=== PATIENT | male | born 1990 | race Caucasian/White ===

== ENCOUNTER 2016-11-02 01:48 | Emergency (ER) | payer OTHER, BC ==
[~2016-11-02] VITALS: Ht 170.2 cm; Wt 58.2 kg
[~2016-11-02 01:48] MED LIST: NO ROUTINE MEDS
--- OUTSIDE RECORDS SUMMARY | 2016-11-02 01:53 | XMS REPORT | Continuity of Care Document ---
Author Author [facility] Organization [facility] Address Unknown Phone Unavailable Allergies Active Description Code Type Severity Reaction Onset Reported/Identified Relationship to Patient Clinical Status Yes amoxicillin NKMA N/A N/A 10/15/2013 Yes penicillin NKMA N/A Hives 10/15/2013 Medications Problems Procedures Results Encounters ACCT No. Visit Date/Time Discharge Status Pt. Type Provider Facility Loc./Unit Complaint [id number] 07/07/2015 14:24:00 2015 23:59:00 DIS Outpatient German Goode [facility] New Surg lynn bite left hand [id number] 07/07/2015 09:33:00 2015 23:59:00 DIS Outpatient Reyna Gracia [facility] New FM Poss lynn bite [id number] 06/22/2015 13:00:00 Document Registration [id number] 06/22/2015 12:53:00 ACT Outpatient Haroon Booker [facility] New IC PAIN RT SIDE OF STOMACH
--- OUTSIDE RECORDS SUMMARY | 2016-11-02 01:53 | XMS REPORT | Referral Summary ---
Author Author [facility] Organization [facility] Address Unknown Phone Unavailable Care Team Providers Care Risk Management Manager Name Role Phone Minerva Sullivan Primary Care Physician [phone] Encounter VC Date(s): 07/07/15 - 07/07/15 [facility] [address] [place] [address] Discharge Diagnosis: Superficial frostbite of left hand Discharge Disposition: 01-Home or Self Care Attending Physician: Reyna Gracia PA-C Admitting Physician: Reyna Gracia PA-C Vital Signs Most recent to 1 oldest [Reference Range]: Temperature Tympanic 35.6 degC [36.6-38.1 degC] *LOW* (07/07/15 9:45 AM) Peripheral Pulse 88 bpm Rate [60-100 bpm] (07/07/15 9:45 AM) Respiratory Rate 20 br/min [14-20 br/min] (07/07/15 9:45 AM) Blood Pressure 115/82 mmHg [90-140/60-90 mmHg] (07/07/15 9:45 AM) Problem List Condition Effective Dates Status Health Status Informant Head Resolved trauma(Confirmed) Allergies, Adverse Reactions, Alerts Substance Reaction Severity Status amoxicillin Active penicillin Hives Active Medications Aldara 5% topical cream 1 macy, Topical, 3x/Wk, # 24 Each, 0 Refill(s), Pharmacy: [facility] # [id number] Start Date: 09/16/14 Status: Ordered Keflex 500 mg oral capsule 500 mg 1 caps, Oral, q8hr, X 7 days, # 21 caps, 0 Refill(s), Pharmacy: [facility] #[id number], 1 caps Oral q8hr,x7 days Start Date: 07/07/15 Stop Date: 07/14/15 Status: Ordered Results No data available for this section Immunizations Vaccine Date Refusal Reason tetanus/diphth/pertuss (Tdap) adult/adol 11/15/05 influenza virus vaccine, inactivated 04/18/15 Procedures Procedure Date Related Diagnosis Body Site Hospital admission for broken eye socket 3 places Social History Social History Type Response Smoking Status Current every day smoker; Type: Cigarettes Assessment and Plan Extracted from: Title: Ambulatory Patient Education Author: Reyna Gracia PA-C Date : 07/07/15 Family Medicine Frostbite When your skin is exposed to cold for a long period of time, the underlying tissues may freeze and suffer permanent damage. This condition is called frostbite. Commonly affected areas include the feet, hands (especially the fingers), nose, and ears. People with poor circulation, the elderly, people with poorly controlled diabetes, and people with alcoholism are at greater risk for frostbite. Frostbite ranges in severity from mild and reversible to severe with possible permanent tissue and loss. DIAGNOSIS Frostbite is diagnosed when areas of the skin appear wisdom or pale and feel hard. There may be a lack of feeling in the area, or there may be severe pain. As the frostbitten part warms, a red color may return to the area, and there is usually increased pain. TREATMENT When frostbite is present there may also be hypothermia. This is a drop in the temperature of the entire body. It is important to check the temperature and make sure it is normal (98.6F [37C]). It is important to warm frostbitten parts as soon as possible to avoid permanent damage. The following steps can be taken to help: Get out of the cold. Warm hands in your armpits. Cover the nose and ears with gloved hands. Removing the person from a cold environment is the number one priority, if possible. Do not rub affected areas or use them. Do not walk on frostbitten feet unless it is necessary to get to a warm place. If emergency help is not available, the frostbitten parts may be submerged in lukewarm water. The water should not be hot. If pain occurs with warming, this is a good sign. It means circulation is returning. If there is no pain or lack of feeling remains, it is necessary to seek immediate medical help. After you warm the affected area it is very important that this area is not reexposed to cold. Stay out of the cold. Do not smoke. Smoking reduces your circulation. PREVENTION Wear warm clothing in layers, starting with long underwear and adding additional loose-fitting garments. Wear mittens. Mittens lock in air, and the fingers help warm each other. Wear 2 pairs of socks. Wear cotton socks next to the skin and wool socks over the cotton socks. Wear waterproof boots or shoes that are not tight fitting. Wear a pull-down cap or hobson, covering the head, ears, neck, and face if necessary. Avoid alcohol. This increases heat loss and increases chances of frostbite. Avoid smoking. Nicotine causes blood vessels to constrict in your hands and feet. Pack food when you plan to be in the cold. Increasing your caloric intake to a high level increases your internal heat. Carry extra blankets and clothing in the car during cold weather. Be aware of the windchill factor and dress accordingly. Wind is an important factor that can increase the risk of frostbite. Avoid high winds when low temperatures are present. Always avoid situations where it is impossible to get out of the cold if needed. At the first signs of frostbite (numbness, pain, extreme redness), you should immediately get out of the cold. HOME CARE INSTRUCTIONS If bandages (dressings) were applied, change them as directed. Follow up with your caregiver. Keep any appointments with specialists as directed. Failure to follow up could result in infection, loss of tissue, and chronic pain or disability. SEEK IMMEDIATE MEDICAL CARE IF: You have a fever. You develop redness, lose tissue, or there is yellowish-white fluid (pus) coming from the frostbitten area. You develop increasing pain in the frostbitten area. The frostbitten area begins to turn a dark color. You see a red streak going away from the frostbitten area. MAKE SURE YOU: Understand these instructions. Will watch your condition. Will get help right away if you are not doing well or get worse. Document Released: 09/10/2001 Document Revised: 10/19/2014 Document Reviewed: ExitCare Patient Information 2015 [facility], [facility]. This information is not intended to replace advice given to you by your health care provider. Make sure you discuss any questions you have with your health care provider. No follow up information was provided. Extracted from: Title: Office Visit Note- Frostbite Author: Reyna Gracia PA-C Date : 07/07/15 Assessment/Plan Superficial frostbite of left hand This looks like it is very superficial and confined only to skin and SQ tissue. Would like pt to see Dr. Mccurdy to see if there is anything further that can be done. D/w Dr. Sullivan, and he agreed and also wanted to place the pt on abx. Will start Keflex. Pt advised to let us know if he has any issues with the medication (as he has h/o rash with PCN, but no anaphylaxis). Pt advised to keep hands covered and out of cold and avoid injury. Ordered: Office Visit Level 3 Est 92640 Orders: cephalexin, 500 mg 1 caps, Oral, q8hr, X 7 days, # 21 caps, 0 Refill(s ), Pharmacy: [facility] #[id number], 1 caps Oral q8hr,x7 days
--- OUTSIDE RECORDS SUMMARY | 2016-11-02 01:53 | XMS REPORT | Referral Summary ---
Author Author [facility], [facility] Organization [facility] Address Unknown Phone Unavailable Care Team Providers Care Sprinkler Irrigation Equipment Mechanic Name Role Phone Minerva Sullivan Primary Care Physician [phone] Encounter VC Date(s): 06/22/15 - 06/22/15 [facility] [address] [place] [address]- Discharge Diagnosis: History of indigestion Discharge Diagnosis: Tobacco use Discharge Diagnosis: Acute abdominal pain in right lower quadrant Discharge Disposition: 01-Home or Self Care Attending Physician: Haroon Booker PA-C Admitting Physician: Haroon Booker PA-C Vital Signs Most recent to 1 oldest [Reference Range]: Temperature Tympanic 36.6 degC [36.6-38.1 degC] (06/22/15 12:58 PM) Apical Heart Rate 65 bpm [60-100 bpm] (06/22/15 12:58 PM) Blood Pressure 116/68 mmHg [90-140/60-90 mmHg] (06/22/15 12:58 PM) SpO2 98 % (06/22/15 12:58 PM) Problem List Condition Effective Dates Status Health Status Informant Head Resolved trauma(Confirmed) Allergies, Adverse Reactions, Alerts Substance Reaction Severity Status amoxicillin Active penicillin Hives Active Medications Aldara 5% topical cream 1 macy, Topical, 3x/Wk, # 24 Each, 0 Refill(s), Pharmacy: [facility] # [id number] Start Date: 09/16/14 Status: Ordered Results No data available for this section Immunizations Vaccine Date Refusal Reason tetanus/diphth/pertuss (Tdap) adult/adol 11/15/05 influenza virus vaccine, inactivated 04/18/15 Procedures Procedure Date Related Diagnosis Body Site Hospital admission for broken eye socket 3 places Social History Social History Type Response Smoking Status Current every day smoker; Type: Cigarettes Assessment and Plan Extracted from: Title: abdominal pain Author: Haroon Booker PA-C Date: 06/22/15 Assessment/Plan Acute abdominal pain in right lower quadrant Exam testing was equivocal, patient is convinced he has appendicitis. Dr. Sullivan was contacted, [facility] Patient will follow up after results are obtained. History of indigestion This small dose ofPepto-Bismol did not improve his symptoms; he has not taken anything for indigestion. He notes he did not have symptomsin the last 24 hours developed the abdominal pain. Tobacco use Cessation and Addendum Radiologist from [facility] called with the report from the CT there was no by evidence of an acute abdomen, appendix was within normal limits. There were no findings; Ade, it was a normal exam. Haroon Miller PA-C on June 22, 2015 14:26:36 RN ONCOLOGY Addendum Diagnosis and treatment discussed. Patient advised to follow up with PCP in 2-3 days. by Patient stable upon discharge, alert and orientated with no apparent distress, and Ade, indicated understanding of discharge instructions. Haroon Miller If symptoms worsen at any time, patient will go to the nearest ER for further evaluation. ULISES on June 22, 2015 14:27:41 RN ONCOLOGY
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
--- OUTSIDE RECORDS SUMMARY | 2016-11-02 01:53 | XMS REPORT | Referral Summary ---
Author Author [facility] Organization [facility] Address Unknown Phone Unavailable Care Team Providers Care Casing Cleaner Name Role Phone Minerva Sullivan Primary Care Physician [phone] Encounter VC Date(s): 07/07/15 - 07/07/15 [facility] [address] [place] [address] [place] [address] Discharge Diagnosis: Superficial frostbite Discharge Disposition: 01-Home or Self Care Attending Physician: German Goode MD Admitting Physician: German Goode MD Referring Physician: Serge Sullivan MD Vital Signs Most recent to 1 oldest [Reference Range]: Temperature Tympanic 36.6 degC [36.6-38.1 degC] (07/07/15 2:49 PM) Blood Pressure 104/60 mmHg [90-140/60-90 mmHg] (07/07/15 2:49 PM) Problem List Condition Effective Dates Status Health Status Informant Head Resolved trauma(Confirmed) Allergies, Adverse Reactions, Alerts Substance Reaction Severity Status amoxicillin Active penicillin Hives Active Medications Aldara 5% topical cream 1 macy, Topical, 3x/Wk, # 24 Each, 0 Refill(s), Pharmacy: [facility] # [id number] Start Date: 09/16/14 Status: Ordered Keflex 500 mg oral capsule 500 mg 1 caps, Oral, q8hr, X 7 days, # 21 caps, 0 Refill(s), Pharmacy: [facility] #[id number], 1 caps Oral q8hr,x7 days Start Date: [...] day smoker; Type: Cigarettes Assessment and Plan No data available for this section
[2016-11-02 02:04] VITALS: Ht 170.2 cm; Wt 58.2 kg
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
--- OUTSIDE RECORDS SUMMARY | 2016-11-02 02:29 | XMS REPORT | Continuity of Care Document ---
Author Author [facility] Organization [facility] Address Unknown Phone Unavailable Allergies Active Description Code Type Severity Reaction Onset Reported/Identified Relationship to Patient Clinical Status Yes amoxicillin NKMA N/A N/A 10/15/2013 Yes penicillin NKMA N/A Hives 10/15/2013 Medications Problems Procedures Results Encounters ACCT No. Visit Date/Time Discharge Status Pt. Type Provider Facility Loc./Unit Complaint [id number] 07/07/2015 14:24:00 2015 23:59:00 DIS Outpatient German Goode [facility] New Surg lynn bite left hand [id number] 07/07/2015 09:33:00 2015 23:59:00 DIS Outpatient Reyna Grcaia [facility] New FM Poss lynn bite [id number] 06/22/2015 13:00:00 Document Registration [id number] 06/22/2015 12:53:00 ACT Outpatient Haroon Booker [facility] New IC PAIN RT SIDE OF STOMACH
--- NOTE | 2016-11-02 02:30 | NUR ---
LAB LAB AT BEDSIDE FOR BLOOD DRAW
--- NOTE | 2016-11-02 02:35 | NUR ---
ELIMINATION PT AMBULATORY TO BATHROOM TO OBTAIN URINE SPECIMAN LAB HERE TO COLLECT SPECIMAN
[2016-11-02 02:43] LABS: BASOPHILS % (AUTO) 0.6 % (0-2); EOSINOPHILS # (AUTO) 0.2 T/MM3 (0-0.5); EOSINOPHILS % (AUTO) 3.8 % (0-4); HCT - HEMATOCRIT 40.9 % (41-53); HGB - HEMOGLOBIN 14.7 GM/DL (13.5-17.5); IMMATURE GRANULOCYTE # (AUTO) 0.01 T/MM3 (0.00-0.03); IMMATURE GRANULOCYTE % (AUTO) 0.2 % (0.0-0.5); LYMPHOCYTES # (AUTO) 2.2 T/MM3 (1-4.8); LYMPHOCYTES % (AUTO) 34.3 % (23-45); MEAN CORPUSCULAR HGB 30.6 UUG (26-34); MEAN CORPUSCULAR HGB CONC(MCHC 35.9 GM/DL (31-37); MEAN PLATELET VOLUME 8.5 UM3 (9.4-12.4); MONOCYTES # (AUTO) 0.6 T/MM3 (0-0.8); MONOCYTES % (AUTO) 10.1 % (0-9.0); NEUTROPHILS #(AUTO)-ABSOLUTE 3.3 T/MM3 (1.8-7.7); RED BLOOD COUNT 4.81 M/MM3 (4.50-5.90); WBC - WHITE BLOOD COUNT 6.4 T/MM3 (4.5-11.0)
[2016-11-02 02:47] LABS: BLOOD, URINE NEGATIVE (NEGATIVE); COLOR,URINE YELLOW (YELLOW); LEUKOCYTE ESTERASE ,URINE NEGATIVE (NEGATIVE); NITRITE,URINE NEGATIVE (NEGATIVE); UROBILINOGEN,URINE 0.2 EU/DL (NORMAL)
[2016-11-02 02:54] LABS: ANION GAP 12 MEQ/L (5-15); BUN/CREATININE RATIO 20 RATIO (6-26); CALCIUM 10.5 MG/DL (8.4-10.2); CHLORIDE 102 MEQ/L (98-107); CO2 - CARBON DIOXIDE 30 MEQ/L (22-30); CREATININE 0.8 MG/DL (0.8-1.5); GLOMERULAR FILTRATION RATE 116; GLUCOSE 90 MG/DL (75-110); POTASSIUM 3.6 MEQ/L (3.6-5); SODIUM 144 MEQ/L (134-144)
[2016-11-02 03:06] LABS: AMPHETAMINE SCREEN,URINE NEGATIVE; BARBITURATE SCREEN,URINE NEGATIVE; BENZODIAZEPINES SCREEN,URINE NEGATIVE; CANNABINOID SCREEN,URINE NEGATIVE; COCAINE SCREEN,URINE NEGATIVE; METHADONE SCREEN, URINE NEGATIVE; METHAMPHETAMINE SCREEN, URINE NEGATIVE; OPIATE SCREEN,URINE NEGATIVE; PHENCYCLIDINE SCREEN,URINE NEGATIVE; TRICYCLIC ANTIDEPRESSANT,URINE NEGATIVE
[2016-11-02 03:16] LABS: ACETAMINOPHEN < 10 UG/ML (10-30); ETHANOL <10 MG/DL (<10); SALICYLATE < 1.0 MG/DL (2-20)
[2016-11-02] MEDS ORDERED: ONDANSETRON ODT 4mg #3 (PrePack) SENT HOME ONE (03:45)
--- NOTE | 2016-11-02 03:47 | NUR ---
INSTRUCTIONS DISMISSAL INSTRUCTIONS GIVEN TO PT WORKABILITY REPORT FROM [facility] COMPLETED AND RETURNED TO PT PT VERBALIZED UNDERSTANDING OF ALL
--- NOTE | 2016-11-02 03:47 | NUR ---
PREPACK PREPACK OF ZOFRAN ODT GIVEN TO PT WITH INSTRUCTIONS
[2016-11-02 03:49] VITALS: BP 129/81; PULSE 82; RESP 12; TEMP 98.2; O2SAT 98
--- NOTE | 2016-11-02 03:49 | NUR ---
DISMISS PT DISMISSED AMBULATORY WITH ADULT FEMALE
== END 2016-11-02 03:49 | disposition home or self-care (01) ==
LOC: ED 01:48
DX: B34.9 Viral infection, unspecified (principal)
CPT/HCPCS: 36415; 80048; 80306; 80307; 81003; 85025